=== PATIENT | female | born 1985 | race Caucasian/White ===

== ENCOUNTER → 2019-09-12 09:32 | Outpatient (BNVA) | payer BC, SELFPAY | PROVIDERS: Family Provider Nurse Practitioner Family; Visit Provider Nurse Practitioner Family | DX: S92.902A Unspecified fracture of left foot, initial encounter for closed fracture (principal); X58.XXXA Exposure to other specified factors, initial encounter | CPT/HCPCS: 73630 ==

== ENCOUNTER → 2019-09-16 13:30 | Outpatient (BNVA) | payer BC, SELFPAY | PROVIDERS: Family Provider Nurse Practitioner Family; Visit Provider Podiatrist Foot & Ankle Surgery | DX: S90.32XA Contusion of left foot, initial encounter (principal); X58.XXXA Exposure to other specified factors, initial encounter | CPT/HCPCS: 73630 ==

== ENCOUNTER → 2019-10-07 13:20 | Outpatient (BNVA) | payer BC, SELFPAY | PROVIDERS: Family Provider Nurse Practitioner Family; Visit Provider Podiatrist Foot & Ankle Surgery | DX: S90.32XA Contusion of left foot, initial encounter (principal); S93.325A Dislocation of tarsometatarsal joint of left foot, initial encounter; M19.072 Primary osteoarthritis, left ankle and foot; X58.XXXA Exposure to other specified factors, initial encounter | CPT/HCPCS: 73630 ==

== ENCOUNTER 2019-10-10 10:35 | Outpatient (CLI) | payer BC, SELFPAY ==
--- NOTE | 2019-10-10 10:41 | XR_ITS ---
WS: [id number] XR lumbar spine 6V w f/e [id number] REASON FOR EXAM: low back pain FINDINGS: The disc spaces and vertebral bodies are all normal. In the oblique views no evidence of spondylolysis or spondylolisthesis. The angle weightbearing of L3 is anterior to the base of the sacrum with slight increased lordosis. The facets are normal. The lumbosacral angle was essentially normal. XR/XR lumbar spine 6V w f/e [id number] IMPRESSION: Increased lordosis.
== END 2019-10-10 10:36 | disposition home or self-care (01) ==
LOC: RAD 10:39
PROVIDERS: Family Provider Nurse Practitioner Family; PCP Nurse Practitioner Family; Visit Provider Nurse Practitioner Family
DX: M51.36 Other intervertebral disc degeneration, lumbar region (principal); M40.46 Postural lordosis, lumbar region; M54.5 Low back pain
CPT/HCPCS: 72114

== ENCOUNTER → 2019-12-08 10:32 | Outpatient (BNVA) | payer BC, SELFPAY | PROVIDERS: Family Provider Nurse Practitioner Family; PCP Nurse Practitioner Family; Visit Provider Nurse Practitioner Family | DX: S69.90XA Unspecified injury of unspecified wrist, hand and finger(s), initial encounter (principal) | CPT/HCPCS: 73130 ==

== ENCOUNTER → 2020-06-01 11:42 | Outpatient (BNVA) | payer BC, SELFPAY | PROVIDERS: Family Provider Nurse Practitioner Family; PCP Nurse Practitioner Family; Visit Provider Nurse Practitioner Family | DX: J02.9 Acute pharyngitis, unspecified (principal) | CPT/HCPCS: 87070; 87071; 87880 ==

== ENCOUNTER → 2020-08-03 16:04 | Outpatient (BNVA) | payer BC, SELFPAY | PROVIDERS: Family Provider Nurse Practitioner Family; PCP Nurse Practitioner Family; Visit Provider Nurse Practitioner Family | DX: I10 Essential (primary) hypertension (principal); R45.86 Emotional lability; K52.9 Noninfective gastroenteritis and colitis, unspecified; Z79.899 Other long term (current) drug therapy; F41.9 Anxiety disorder, unspecified | CPT/HCPCS: 80053; 81003; 82607; 82670; 82784; 83001; 83036; 83516; 83550; 84439; 84443; 84481; 85025 ==

== ENCOUNTER → 2020-08-06 11:54 | Outpatient (BNVA) | payer BC, SELFPAY | PROVIDERS: Family Provider Nurse Practitioner Family; PCP Nurse Practitioner Family; Visit Provider Nurse Practitioner Family | DX: K52.9 Noninfective gastroenteritis and colitis, unspecified (principal); I10 Essential (primary) hypertension | CPT/HCPCS: 83630; 87493; 87506; G0328 ==

== ENCOUNTER 2021-01-13 13:53 | Emergency (ER) | payer OTHER, SELFPAY ==
[2021-01-13 14:06] VITALS: BP 130/87; PULSE 72; RESP 16; TEMP 36.6; O2SAT 97; BMI 26.6
--- NOTE | 2021-01-13 14:22 | ECG_ITS ---
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 Measurements Intervals [place] Rate: 77 P: 68 ID: [id number] QRS: 70 QRSD: 87 T: 58 QT: 420 QTc: 477 Interpretive Statements SINUS RHYTHM WITH OCCASIONAL VENTRICULAR PREMATURE COMPLEXES WITH FREQUENT SUPRAVENTRICULAR PREMATURE COMPLEXES POSSIBLE LEFT ATRIAL ENLARGEMENT [-0.1mV P WAVE IN V1/V2] MINIMAL ST DEPRESSION [0.025+ mV ST DEPRESSION] Compared to ECG 11/06/2018 15:01:47 Ventricular premature complex(es) now present ST (T wave) deviation now present Electronically Signed On 01-13-2021 18:30:10 CDT by aKlyn Washington M.D. [email or web address] [facility].[id number]
[2021-01-13 14:40] LABS: Basophils # 0.1 10^3/uL (0.0-0.1); Eosinophils # 0.1 10^3/uL (0.0-0.8); Eosinophils % 1.9 %; Hematocrit 45.6 % (37.0-47.0); Hemoglobin 14.7 g/dL (11.5-15.3); Lymphocytes % 20.8 %; Mean Corpuscular HGB Conc 32.2 g/dL (30.0-36.0); Mean Corpuscular Hemoglobin 28.8 pg (28.0-34.0); Mean Corpuscular Volume 89.2 fL (81-99); Monocytes # 0.3 10^3/uL (0.2-0.9); Monocytes % 7.1 %; Neutrophils # 3.32 10^3/uL (1.8-7.7); Nucleated Red Blood Cells % 0 %; Platelet Count 356 10^3/cmm (130-400); Red Blood Count 5.11 10^6/uL (4.1-5.3); Red Cell Distribution Width 13.3 % (12.1-15.1); White Blood Count 4.8 10^3/uL (4.0-10.0)
[2021-01-13 15:37] LABS: Anion Gap 19.1 (5-19); Blood Urea Nitrogen 5 mg/dL (6-20); Calcium 8.9 mg/dL (8.5-10.5); Carbon Dioxide 26 mmol/L (22-29); Chloride 99 mmol/L (98-107); Creatinine Clr Calc Pharmacy 131.8755; Glomerular Filtration Rate 114.4 mL/min (90-130); Glucose 70 mg/dL (65-115); Osmolality Calculated 286 mOsm/kg (285-295); Potassium 4.1 mmol/L (3.5-5.1); Sodium 140 mmol/L (136-145)
--- NOTE | 2021-01-13 16:26 | XRR_ITS ---
PROCEDURE INFORMATION: Exam: XR Chest Exam date and time: 01/13/2021 4:27 PM Age: 35 years old Clinical indication: Sternal or substernal pain; Additional info: Cp, HTN TECHNIQUE: Imaging protocol: XR of the chest. Views: 1 view. COMPARISON: CR Chest 1 [place] [id number] 11/06/2018 4:13 PM FINDINGS: Lungs: Unremarkable. No consolidation. Pleural spaces: Unremarkable. No pleural effusion. No pneumothorax. Heart/Mediastinum: Unremarkable. No cardiomegaly. Bones/joints: Unremarkable. XR/XR chest 1V portable [id number] IMPRESSION: No acute disease.
[2021-01-13 16:33] VITALS: BP 138/100; PULSE 78; RESP 18; O2SAT 98
--- NOTE | 2021-01-13 16:35 | W.ED.GENADLT ---
HPI - General Adult General: Chief complaint: General Medical Stated complaint: Abnormal EKG/HTN Time Seen by Provider: 01/13/21 16:05 Source: patient Mode of arrival: EMS Limitations: no limitations History of Present Illness: HPI narrative: This is a 35-year-old female patient with a prior history of hypertension, who had been on antihypertensives but stopped as she felt her blood pressure was under control. Today she reports that she she was feeling lightheaded and checked her blood pressure and it was elevated with the systolic in the 150s. She has a prescription for as needed clonidine and so she took 1 tablet but it initially did not bring her blood pressure down, so she went to see her primary care provider. An EKG done at the PCPs office was said to be abnormal so she was sent down to the ED to be evaluated Onset (ago): hour(s) Associated symptoms: Reports chest pain; Deny confusion, cough, diaphoresis, decreased appetite, dyspnea, fevers/chills, headache(s), malaise, nausea, rash, palpitations, seizures, short of breath, syncope, vomiting or weakness Review of Systems General: Reports: 10 or more systems reviewed and unremarkable except in HPI and below Const: Denies: malaise or diaphoresis Card: Reports: chest pain; Denies: palpitations or syncope Resp: Denies: dyspnea GI: Denies: nausea or vomiting Skin/Breast: Denies: rash Neuro: Denies: headache(s) or confusion PFS ED PFSH: Medical History Anxiety Patient has taken Alprazolam 0.5mg daily in the past that was provided by previous provider. Anxiety Atrial arrhythmia Chronic diarrhea Depression Essential hypertension GERD (gastroesophageal reflux disease) Intermittent palpitations Left ankle sprain Medication management Mood swings Pharyngitis Pleuritic chest pain Raynauds disease Rhus dermatitis Scleroderma Sinus arrhythmia Vitamin D deficiency Surgical History Hx of tubal ligation Family History Grandmother CAD (coronary artery disease) Myocardial infarction Grandfather Hypertension Myocardial infarction Father Diabetes Social History Smoking and tobacco status: never smoked Second hand smoke exposure: No Alcohol intake: never Desire information about alcohol rehabilitation?: No Counseling given: No Desire information about substance/drug rehabilitation?: No Counseling given: No Household members: children Current occupational status: employed 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[employer], 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 Female Reproductive History: Date of last menstrual period: 01/13/21 Physical Exam Const: COMMON NORMALS: no acute distress, average body habitus, patient oriented x3, no limitations, healthy appearing, alert and well nourished HENMT: COMMON NORMALS: normocephalic, atraumatic and moist oral mucous membranes HEAD & SCALP: normocephalic and atraumatic Neck/C-Spine: COMMON NORMALS: no meningeal signs and no JVD Chest: COMMONS NORMALS: normal inspection of the chest and normal palpation of entire chest wall Resp: COMMON NORMALS: normal respiratory effort, No retractions, No use of accessory muscles, clear to auscultation bilaterally and percussion normal AUSCULTATION: clear to auscultation bilaterally PERCUSSION: percussion normal Cardio: COMMON NORMALS: no JVD, regular rate, regular rhythm, S1 normal heart sound present, S2 normal heart sound present, No gallops present (Cardio), No clicks present (Cardio), No murmurs present (Cardio), No rub (Cardio) and Peripheral pulses 2+ throughout RATE: regular rate RHYTHM: regular rhythm HEART SOUNDS: S1 normal heart sound present and S2 normal heart sound present PERIPHERAL PULSES: Peripheral pulses 2+ throughout GI: COMMON NORMALS: Normal to inspection, nondistended, normoactive bowel sounds present, Soft to palpation, non-tender, No hepatosplenomegaly present, no masses and no bruits PALPATION: Yes Soft to palpation and Yes No hepatosplenomegaly present Extremity: COMMON NORMALS: normal to inspection, full ROM, capillary refill normal, no calf tenderness and no pedal edema Neuro: COMMON NORMALS: patient oriented x3 SENSORIUM/ORIENTATION: Yes alert MENINGEAL SIGNS: Yes no meningeal signs Skin: COMMON NORMALS: no rashes or lesions noted, no wounds, turgor normal, no jaundice, no petechiae and no mottling GENERAL SKIN EXAM: no rashes or lesions noted and turgor normal Course Reevaluation(s): Reevaluation #1: Discussed her lab and imaging findings with her. Negative for acute findings. Advised that she needs to get back on her antihypertensives. We will send her home with a prescription for amlodipine since that was what she was taking before she stopped it. She is advised to check her blood pressures regularly and to follow-up with her primary care provider. She voiced understanding and is in agreement with the plan. Time: 17:47 Vital Signs: Vital signs: Vital Signs Temperature 97.9 F 01/13/21 14:06 Pulse Rate 73 01/13/21 17:59 Respiratory Rate 15 01/13/21 17:59 Blood Pressure 154/100 01/13/21 17:59 Pulse Oximetry 98 01/13/21 17:59 MDM - General Adult MDM Narrative: Medical decision making narrative: 35-year-old female patient who was brought to the emergency department with elevated blood pressure. Evaluation in the emergency department is consistent with hypertensive urgency. No endorgan damage. She is discharged home with a prescription for amlodipine and is to follow-up with her primary care provider. Medical Records: Attestation: I reviewed the patient's medical records. Lab Data: Attestation: I reviewed the patient's lab results. Labs: Lab Results 01/13/21 01/13/21 01/13/21 Range/Units 14:27 14:27 14:27 WBC 4.8 (4.0-10.0) 10^3/ uL RBC 5.11 (4.1-5.3) 10^6/u L Hgb 14.7 (11.5-15.3) g/dL Hct 45.6 (37.0-47.0) % MCV 89.2 (81-99) fL MCH 28.8 (28.0-34.0) pg MCHC 32.2 (30.0-36.0) g/dL RDW 13.3 (12.1-15.1) % Plt Count 356 (130-400) 10^3/c mm MPV 10.0 (7.4-10.4) fL Neut % (Auto) 69.0 % Lymph % (Auto) 20.8 % [place] % (Auto) 7.1 % Eos % (Auto) 1.9 % Baso % (Auto) 1.0 % Neut # (Auto) 3.32 (1.8-7.7) 10^3/u L Lymph # (Auto) 1.0 (0.8-4.8) 10^3/u L [place] # (Auto) 0.3 (0.2-0.9) 10^3/u L Eos # (Auto) 0.1 (0.0-0.8) 10^3/u L Baso # (Auto) 0.1 (0.0-0.1) 10^3/u L Nucleated RBC % (a uto) 0 % Nucleated RBCs # 0.0 /100WBC Sodium 140 (136-145) mmol/L Potassium 4.1 (3.5-5.1) mmol/L Chloride 99 (98-107) mmol/L Carbon Dioxide 26 (22-29) mmol/L Anion Gap 19.1 H (5-19) BUN 5 L (6-20) mg/dL Creatinine 0.6 (0.5-0.9) mg/dL GFR Calculation 114.4 (90-130) mL/min Glucose 70 (65-115) mg/dL Calculated Osmolal ity 286 (285-295) mOsm/k g Calcium 8.9 (8.5-10.5) mg/dL Troponin T Baselin e 6 (0-10) ng/L Troponin T 120 Min josé (0-10) ng/L Delta Troponin T (0-10) ABS# TSH (0.27-4.20) uIU/ mL 01/13/21 01/13/21 Range/Units 14:27 16:53 WBC (4.0-10.0) 10^3/ uL RBC (4.1-5.3) 10^6/u L Hgb (11.5-15.3) g/dL Hct (37.0-47.0) % MCV (81-99) fL MCH (28.0-34.0) pg MCHC (30.0-36.0) g/dL RDW (12.1-15.1) % Plt Count (130-400) 10^3/c mm MPV (7.4-10.4) fL Neut % (Auto) % Lymph % (Auto) % [place] % (Auto) % Eos % (Auto) % Baso % (Auto) % Neut # (Auto) (1.8-7.7) 10^3/u L Lymph # (Auto) (0.8-4.8) 10^3/u L [place] # (Auto) (0.2-0.9) 10^3/u L Eos # (Auto) (0.0-0.8) 10^3/u L Baso # (Auto) (0.0-0.1) 10^3/u L Nucleated RBC % (a uto) % Nucleated RBCs # /100WBC Sodium (136-145) mmol/L Potassium (3.5-5.1) mmol/L Chloride (98-107) mmol/L Carbon Dioxide (22-29) mmol/L Anion Gap (5-19) BUN (6-20) mg/dL Creatinine (0.5-0.9) mg/dL GFR Calculation (90-130) mL/min Glucose (65-115) mg/dL Calculated Osmolal ity (285-295) mOsm/k g Calcium (8.5-10.5) mg/dL Troponin T Baselin e (0-10) ng/L Troponin T 120 Min josé 6.00 (0-10) ng/L Delta Troponin T 0 (0-10) ABS# TSH 0.82 (0.27-4.20) uIU/ mL Imaging Data^: CXR: Attestation: I personally reviewed and interpreted this imaging study as follows: Radiologist's impression: [address] [address]QUsw ReportSigned Patient: Gadiel Caballero #: [id number]: 1985Acct#:[id number]/Sex: 35 / FADM Date: 01/13/21Loc: ERRoom/Bed:Attending Dr: Ordering Provider/Ordering MD: Taty Alejandra MD, [facility] Date of Service: 01/13/21 Procedure(s): XR chest 1V portable [id number] Accession Number(s): [id number] Report Number: [id number] PROCEDURE INFORMATION: Exam: XR Chest Exam date and time: 01/13/2021 4:27 PM Age: 35 years old Clinical indication: Sternal or substernal pain; Additional info: Cp, HTN TECHNIQUE: Imaging protocol: XR of the chest. Views: 1 view. COMPARISON: CR Chest 1 [place] [id number] 11/06/2018 4:13 PM FINDINGS: Lungs: Unremarkable. No consolidation. Pleural spaces: Unremarkable. No pleural effusion. No pneumothorax. Heart/Mediastinum: Unremarkable. No cardiomegaly. Bones/joints: Unremarkable. XR/XR chest 1V portable [id number] IMPRESSION: No acute disease. Dictated By:Che Huerta By:Che Huerta Date/Time:01/13/211716DD/ 15 EKG Data^: EKG 1: Attestation: I personally reviewed and interpreted this EKG as follows: EKG interpretation date: 01/13/21 EKG interpretation time: 16:13 Prior EKG tracings: not available for review Interpretation: Sinus rhythm with occasional PVCs. Heart rate [address] changes. Computer generated interpretation: Chest X-Ray 01/13/21 16:26 IMPRESSION: No acute disease. Discharge Plan Discharge Patient Disposition: Home Clinical Impression: Hypertensive urgency Condition: Stable Prescriptions: New amlodipine 10 mg tablet 10 mg PO DAILY Qty: 30 RF: 0 Continued lidocaine HCl [Xylocaine] 10 mg/mL (1 %) solution 2 ml IM ONCE Qty: 1 RF: 0 clonidine HCl 0.1 mg tablet 0.1 mg PO BID PRN (Reason: hypertensive emergency) RF: 0 alprazolam 0.5 mg tablet 0.5 mg PO DAILY PRN (Reason: anxiety) 3 Days Qty: 30 RF: 2 omeprazole 20 mg capsule,delayed release(DR/EC) See Rx Instructions .ROUTE .COMPLEX Qty: 30 RF: 5 venlafaxine 37.5 mg capsule,extended release 24hr 37.5 mg PO DAILY 30 Days Qty: 30 RF: 1 Discharge Orders: Discharge ED (Routine); Ordered 01/13/21 Ordered By: Taty Alejandra Referrals: LANIE Charles, [employer] [Primary Care Provider] - 1-3 days Discharge Diet: Usual diet Discharge Activity: Increase activity as tolerated Patient Instructions: Chronic Hypertension (ED), Hypertensive Crisis (ED) Activity Restrictions/Additional Instructions: Return for any new or worsening symptoms. Follow-up with your primary care provider within 3 days. Check your blood pressure once a day for signs of elevated blood pressure. Take the antihypertensive that I prescribed once a day and follow-up with your primary care provider for monitoring of your blood pressure. Coding Level of Care Code ED Accounts Adjustable Clerk for Adali Fwd Exam Comprehensive
[2021-01-13 17:01] LABS: Troponin(5th) Baseline 6 ng/L (0-10)
[2021-01-13 17:09] LABS: Thyroid Stimulating Hormone 0.82 uIU/mL (0.27-4.20)
[2021-01-13 17:22] LABS: Troponin 5 2HR Delta 0 ABS# (0-10)
[2021-01-13 17:33] VITALS: BP 154/100; PULSE 73; RESP 15; O2SAT 98
[2021-01-13 17:59] VITALS: BP 154/100; PULSE 73; RESP 15; O2SAT 98
== END 2021-01-13 17:59 | disposition home or self-care (01) ==
PROVIDERS: Family Medicine; Emergency Provider Family Medicine; PCP Nurse Practitioner Family
DX: I16.0 Hypertensive urgency (principal); I10 Essential (primary) hypertension
CPT/HCPCS: 36415; 71045; 80048; 84443; 84484; 85025; 93005; 99283

== ENCOUNTER → 2021-04-29 11:50 | Outpatient (BNVA) | payer OTHER, SELFPAY | PROVIDERS: PCP Nurse Practitioner Family; Visit Provider Nurse Practitioner Family | DX: Z20.822 Contact with and (suspected) exposure to COVID-19 (principal); J22 Unspecified acute lower respiratory infection | CPT/HCPCS: 87635 ==

== ENCOUNTER → 2021-08-25 13:23 | Outpatient (BNVA) | payer OTHER, SELFPAY | PROVIDERS: PCP Nurse Practitioner Family; Visit Provider Nurse Practitioner Family | DX: R07.9 Chest pain, unspecified (principal); R07.1 Chest pain on breathing | CPT/HCPCS: 71046 ==

== ENCOUNTER → 2022-07-18 09:38 | Outpatient (BNVA) | payer OTHER, SELFPAY | PROVIDERS: PCP Nurse Practitioner; Visit Provider Nurse Practitioner | DX: R10.9 Unspecified abdominal pain (principal); N32.81 Overactive bladder; R31.9 Hematuria, unspecified; E66.9 Obesity, unspecified | CPT/HCPCS: 74018; 87086 ==

== ENCOUNTER → 2022-09-06 14:07 | Outpatient (BNVA) | payer OTHER, SELFPAY | PROVIDERS: PCP Nurse Practitioner; Visit Provider Nurse Practitioner Family | DX: S93.401A Sprain of unspecified ligament of right ankle, initial encounter (principal); X58.XXXA Exposure to other specified factors, initial encounter | CPT/HCPCS: 73610 ==

== ENCOUNTER → 2023-08-10 08:45 | Outpatient (BNVA) | payer MEDICAID, SELFPAY | PROVIDERS: PCP Nurse Practitioner; Visit Provider Nurse Practitioner Family | DX: N32.81 Overactive bladder (principal); I10 Essential (primary) hypertension; E55.9 Vitamin D deficiency, unspecified; Z13.6 Encounter for screening for cardiovascular disorders; Z79.899 Other long term (current) drug therapy; F41.9 Anxiety disorder, unspecified; F32.9 Major depressive disorder, single episode, unspecified | CPT/HCPCS: 80053; 80061; 81003; 82306; 83036; 84443; 85025; 87086 ==

== ENCOUNTER → 2023-09-13 14:01 | Outpatient (BNVA) | payer OTHER, MEDICAID, SELFPAY | PROVIDERS: PCP Nurse Practitioner; Visit Provider Nurse Practitioner Family | DX: S63.91XA Sprain of unspecified part of right wrist and hand, initial encounter; X58.XXXA Exposure to other specified factors, initial encounter | CPT/HCPCS: 73130 ==

== ENCOUNTER → 2023-11-13 14:05 | Outpatient (BNVA) | payer OTHER, SELFPAY | PROVIDERS: PCP Nurse Practitioner; Visit Provider Nurse Practitioner Family | DX: R10.9 Unspecified abdominal pain (principal); K52.9 Noninfective gastroenteritis and colitis, unspecified | CPT/HCPCS: 73130; 80053; 80061; 81003; 82784; 83516; 83630; 85025; 87045; 87177; 87209; 87328; 87329; 87427; 87449 ==

== ENCOUNTER → 2023-12-06 09:25 | Outpatient (BNVA) | payer OTHER, SELFPAY | PROVIDERS: PCP Nurse Practitioner Family; Visit Provider Nurse Practitioner Family | DX: D35.00 Benign neoplasm of unspecified adrenal gland (principal); D64.9 Anemia, unspecified; Z79.899 Other long term (current) drug therapy | CPT/HCPCS: 80053; 81003; 82607; 82728; 84439; 84443 ==

== ENCOUNTER → 2024-09-03 10:52 | Outpatient (BNVA) | payer OTHER, SELFPAY | PROVIDERS: PCP Nurse Practitioner Family; Visit Provider Nurse Practitioner Family | DX: F41.9 Anxiety disorder, unspecified (principal); I10 Essential (primary) hypertension; R00.0 Tachycardia, unspecified; E55.9 Vitamin D deficiency, unspecified; D64.9 Anemia, unspecified; R32 Unspecified urinary incontinence; R61 Generalized hyperhidrosis; M34.9 Systemic sclerosis, unspecified; Z79.899 Other long term (current) drug therapy | CPT/HCPCS: 80053; 80061; 81003; 82607; 82746; 83036; 83550; 84439; 84443; 84481; 85025; 85651; 86038; 86140 ==

== ENCOUNTER 2025-03-03 13:50 | Emergency (ER) | payer MEDICAID, SELFPAY ==
[2025-03-03 13:55] VITALS: BP 142/89; PULSE 85; RESP 16; TEMP 36.9; O2SAT 97
--- NOTE | 2025-03-03 14:08 | PC.NURSE ---
took patients IV out in triage per her request to leave without being seen. iv intact upon removal.
--- OUTSIDE RECORDS SUMMARY | 2025-03-03 14:21 | XMS_ITS | Encounter Summary ---
Author Organization [facility] Address [address] [place] [address] Care Team Providers Care Health Information Technologist Name Role Phone Terri Hartman DO Primary Care Provider Encounter Details Date Type Department Care Team (Latest Contact Info) Description 03/27/2003 Outpatient [facility] Medicine- [address] [phone] Malcolm Davies MD [address] [facility] [address] [place] [phone] VIRAL WARTS NOS (Primary Dx) Social History Tobacco Use Types Packs/Day Years Used Date Smoking Tobacco: Never Assessed Comments Unknown Sex and Gender Information Value Date Recorded Sex Assigned at Not on file 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
--- OUTSIDE RECORDS SUMMARY | 2025-03-03 14:21 | XMS_ITS | Encounter Summary ---
Author Organization [facility] Address [address] [place] [facility] [place] [address] Care Team Providers Care Rod Welder Name Role Phone Terri Hartman DO Primary Care Provider [phone] Encounter Details Date Type Department Care Team (Latest Contact Info) Description 01/02/2003 Outpatient [facility] Family Medicine- [address] [place] [address] Laura Amaro MD NO ADDRESS ON FILE METRORRHAGIA (Primary Dx); CONTRACEPTIVE MANGMT NEC Social History Tobacco Use Types Packs/Day Years Used Date Smoking Tobacco: Never Assessed Comments Unknown Sex and Gender Information Value Date Recorded Sex Assigned at Not on file 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
--- OUTSIDE RECORDS SUMMARY | 2025-03-03 14:21 | XMS_ITS | Encounter Summary ---
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
--- OUTSIDE RECORDS SUMMARY | 2025-03-03 14:21 | XMS_ITS | Encounter Summary ---
Author Organization [facility] Address [address] [place] [address] Care Team Providers Care Parcel Wrapper Name Role Phone Terri Hartman DO Primary Care Provider Encounter Details Date Type Department Care Team (Latest Contact Info) Description 10/28/2003 Outpatient [facility] Medicine- [address] [phone] Malcolm Davies MD [address] [facility] [address] [place] [phone] URIN TRACT INFECTION NOS (Primary Dx) Social History Tobacco Use Types Packs/Day Years Used Date Smoking Tobacco: Never Assessed Comments Unknown Sex and Gender Information Value Date Recorded Sex Assigned at Not on file Legal Sex Female 5:48 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
--- OUTSIDE RECORDS SUMMARY | 2025-03-03 14:21 | XMS_ITS | Encounter Summary ---
Author Organization [facility] Address [address] [place] [facility] [place] [address] Care Team Providers Care Packing Machine Operator Name Role Phone Terri Hartman DO Primary Care Provider Encounter Details Date Type Department Care Team (Latest Contact Info) Description 04/18/2002 Outpatient [facility] Family Medicine- [address] [place] [address] Laura Amaro MD NO ADDRESS ON FILE ACUTE BRONCHITIS (Primary Dx); Hypertrophy tonsils Social History Tobacco Use Types Packs/Day Years Used Date Smoking Tobacco: Never Assessed Comments Unknown Sex and Gender Information Value Date Recorded Sex Assigned at Not on file 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
--- OUTSIDE RECORDS SUMMARY | 2025-03-03 14:21 | XMS_ITS | Encounter Summary ---
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) Social History Tobacco Use Types Packs/Day Years Used Date Smoking Tobacco: Never Assessed Comments Unknown Sex and Gender Information Value Date Recorded Sex Assigned at Not on file 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
--- OUTSIDE RECORDS SUMMARY | 2025-03-03 14:21 | XMS_ITS | Encounter Summary ---
Author Organization [facility] Address [address] [place] [address] Care Team Providers Care Advanced Research Programs Director Name Role Phone Terri Hartman DO Primary Care Provider Encounter Details Date Type Department Care Team (Latest Contact Info) Description 11/09/2003 Outpatient [facility] Family Medicine [place] [address] [facility] [address] [place] [phone] Malcolm Davies MD [address] [facility] [address] [place] [phone] ABDOMINAL PAIN UNSPEC SITE (Primary Dx); HEADACHE; OTHER MALAISE AND FATIGUE Social History Tobacco Use Types Packs/Day Years Used Date Smoking Tobacco: Never Assessed Comments Unknown Sex and Gender Information Value Date Recorded Sex Assigned at Not on file 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
--- OUTSIDE RECORDS SUMMARY | 2025-03-03 14:21 | XMS_ITS | Data Portability ---
Author Organization [facility], Formerly [facility] Address [address] [place] [address] Assessment Encounter Date Assessment Date Assessment LastModified by Organization Details LastModified Time 03/18/2019 03/18/2019 Pt has tenderness, swelling, and limited ROM of left ankle. XR shows possible fracture of fibula, will send to radiologist and wait for report. Advised to avoid putting pressure on the ankle and to elevate the leg as much as possible. Advised to take ibuprofen 800 mg TID for any pain and to help reduce inflammation. Advised to continue using hot soaks on the ankle. XR of left foot shows no apparent fracture, will send to radiologist and wait for report. Pt has ecchymosis over the distal fibula, dorsum, and medial instep, and heel area. Advised to return as needed and Pt voiced understanding. Not available 03/18/2019 16:11:11 04/22/2019 04/22/2019 Xray obtained of left foot No obvious brake or fracture Will send to radiologist. will refer patient to Specialist. she would like to see Dr. Bor in [place]. Will put in order for walking boot.- would like to see if [facility] would fulfill the order Questions were asked, discussed, and answered. Follow up if needed [email or web address] Not available 04/22/2019 12:23:07 Plan of Treatment Reminders Order Date Submit Date Provider Last Modified By Organization Details Last Modified Time Details Appointments None recorded. Lab None recorded. 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 Surgeries None recorded. Imaging XR, ankle, 3 or more view [address], [address], [address], [place], [address], 9 08:49:17 XR, ankle, 3 or more view 2018 019 [facility], [address], [address], [place], [address], 9 11:08:42 XR, foot, 2 view 2018 019 [facility], [address], [address], [place], [address], 9 11:06:14 Medication Orders triamcinolo ne acetonide 0.1 % topical cream 2024 025 [place] [facility], [address] [place], [address], 5 17:10:41 Depo-Medrol 80 mg/mL suspension for injection 2024 025 [email or web address] Not available 5 12:19:44 dexamethaso ne sodium phosphate (PF) 4 mg/mL injection solution 2024 025 [email or web address] Not available 5 14:39:03 cephalexin 500 mg capsule 2024 025 [place] [facility], [address] [place], [address], 5 17:34:36 ibuprofen 800 mg tablet 2018 019 [email or web address] [employer] [facility], [address] [place], [address], 9 17:51:43 Patient TargetsNo targets recorded. Patient InstructionsNo instructions recorded. 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 Not Available 2018 13:19:59 03/19/20 19 03/18/2019 XR, foot, 2 view No observ ation record ed. Not Available 2018 13:19:59 04/23/20 19 04/22/2019 XR, ankle , 3 or more view No observ ation record ed. [address], [place] [address], [place], [address], 04/28/2019 14:15:20 Result Notes None recorded. Problems Name Problem SNOMED Code Status Onset Date Resolution Date Notes Provider Name and Address Organization Details Recorded Time Cardiac arrhythmia 780192711 Active 2018 JOHN Johnson, [facility] 9 15:10:44 Hypertensi ve disorder 09771558 Active 2018 JOHN Johnson, [facility] 9 15:10:59 Depressive disorder 17230615 Active 2018 JOHN Johnson, [facility] 9 15:11:07 Systemic sclerosis 50549878 Active 2018 systemic scleroderm a JOHN Johnson, [facility] 9 15:12:00 Problem Notes None recorded. Procedures Surgical History Date Name Laterality Status Provider Name and Address Organization Details Recorded Time 8 Tubal Ligation completed Lou Bradford LPN [facility] 03/18/2019 15:12:40 Imaging Results None recorded. Procedure Notes None recorded. Medical Equipment None Reported. Allergies Allergen ID Allergen Name Allergen Category Reaction Reaction Severity Criticality Documentation Date Start Date Code Code System Note Provider Name and Address Organization Details Recorded Time [address] Ricardoro medicdevono n Not available Not available Not available 03/18/2019 3 RxNorm Lou Bradford LPN [facility] 9 15:10:33 Medications Name Sig Start Date Stop Date Status Note LastModified by Organization Details LastModified Time clonidine HCl 0.1 mg tablet Take 1 tablet every day by oral route as needed. 10/14 completed Not Available Not Available Not Available citalopram 40 mg tablet TAKE 1 TABLET BY MOUTH DAILY active Not Available Not Available No t Available ibuprofen 800 mg tablet TAKE 1 TABLET BY MOUTH EVERY 8 HOURS FOR 30 DAYS active Not Available Not Available No t Available omeprazole 40 mg capsule,del ayed release TAKE 1 CAPSULE BY MOUTH EVERY DAY active Not Available Not Available No t Available triamcinolo ne acetonide 0.1 % topical cream APPLY A THIN LAYER TO THE AFFECTED AREA(S) BY TOPICAL ROUTE 2 TIMES PER DAY active Not Available Not Available No t Available Depo-Medrol 80 mg/mL suspension for injection Take 80 mg by injection route. 2024 active Not Available Not Available Not Avai lable alprazolam 0.5 mg tablet TAKE 1 TABLET BY MOUTH daily Needed FOR anxiety FOR 30 DAYS active Not Available Not Available No t Available amlodipine 10 mg tablet TAKE 1 TABLET BY MOUTH EVERY DAY active Not Available Not Available No t Available cephalexin 500 mg capsule TAKE 1 CAPSULE BY MOUTH EVERY 6 HOURS FOR 7 DAYS active Not Available Not Available No t Available neomycin-po lymyxin-dex ameth 3.5 mg/mL-10,00 0 unit/mL-0.1 % eye drops administe r 2 DROPS INTO THE AFFECTED EYE(S) EVERY 6 HOURS 10/14 completed Not Available Not Available Not Available gabapentin 300 mg capsule TAKE 1 CAPSULE BY MOUTH ONCE EVERY NIGHT AT BEDTIME 10/14 completed Not Available Not Available Not Available sertraline 25 mg tablet Take 1 tablet every day by oral route. 10/14 completed Not Available Not Available Not Available telmisartan 20 mg tablet TAKE 1 TABLET BY MOUTH EVERY DAY active Not Available Not Available No t Available ergocalcife rol (vitamin D2) 1,250 mcg (50,000 unit) capsule TAKE 1 CAPSULE BY MOUTH ONCE A WEEK active Not Available Not Available No t Available methylpredn isolone 4 mg tablets in a dose pack TAKE 6 TABLETS BY MOUTH ON DAY 1, THEN DECREASE BY 1 TABLET DAILY FOR 5 MORE DAYS 10/14 completed Not Available Not Available Not Available hydroxyzine HCl 10 mg tablet TAKE 1 TABLET BY MOUTH EVERY 8 HOURS active Not Available Not Available No t Available sertraline 50 mg tablet Take 1 tablet every day by oral route. 10/14 completed Not Available Not Available Not Available progesteron e micronized 100 mg capsule TAKE 1 CAPSULE BY MOUTH ONCE EVERY NIGHT AT BEDTIME 10/14 completed Not Available Not Available Not Available amoxicillin 500 mg-potassiu m clavulanate 125 mg tablet TAKE 1 TABLET BY MOUTH TWICE DAILY FOR 7 DAYS 10/14 completed Not Available Not Available Not Available metoprolol tartrate 25 mg tablet TAKE 1/2 TABLET BY MOUTH TWICE A DAY FOR 30 DAYS 10/14 completed Not Available Not Available Not Available cholecalcif mele (vitamin D3) 1,250 mcg (50,000 unit) capsule TAKE 1 CAPSULE BY MOUTH ONCE A WEEK 10/14 completed Not Available Not Available Not Available dexamethaso ne sodium phosphate (PF) 4 mg/mL injection solution Take 4 mg by injection route. 2024 active Not Available Not Available Not Avai lable Vitals Date Recorded Body height Body mass index (BMI) Body weight Body temperature Heart rate Oxygen saturation Oxygen saturation in Arterial blood by Pulse oximetry Respiratory rate Systolic And Diastolic Provider Name and Address Organization Details Last Updated DateTime 5 165.1 cm 35.8 kg/m2 27064.4 6 g 98.7 [degF] 86 /min 98 % 98 % 18 /min 114/72 mm[Hg] Ava CONN - [facility] 5 12:21:50 Date Recorded Body weight Body mass index (BMI) Body height Body temperature Heart rate Oxygen saturation Oxygen saturation in Arterial blood by Pulse oximetry Respiratory rate Systolic And Diastolic Provider Name and Address Organization Details Last Updated DateTime 9 23310.2 8 g 31 kg/m2 165.1 cm 97.9 [degF] 111 /min 99 % 99 % 18 /min 118/74 mm[Hg] Lou Bradford LPN [facility] 9 15:17:17 Date Recorded Body height Body mass index (BMI) Body weight Body temperature Heart rate Oxygen saturation Oxygen saturation in Arterial blood by Pulse oximetry Respiratory rate Systolic And Diastolic Provider Name and Address Organization Details Last Updated DateTime 9 165.1 cm 30.7 kg/m2 74927.8 g 97.5 [degF] 93 /min 99 % 99 % 19 /min 120/72 mm[Hg] Estephania Gutiérrez [facility] 9 11:38:43 Social History Question Answer Notes LastModified by Organizat ion Details LastModified Time Tobacco Smoking Status Never Smoker Lou Bradford LPN [facility] 03/18/2019 15:20:35 Do You Have An Advance Directive? No Information not available 03/18/2019 What Is Your Level Of Caffeine Consumption? Occasional Information not available 03/18/2019 How Much Tobacco Do You Chew? None Information not available 03/18/2019 Commercial Sex Work No Information not available 03/18/2019 What Type Of Diet Are You Following? REGULAR Information not available 03/18/2019 Which Illicit Or Recreational Drugs Have You Used? None Information not available 03/18/2019 Education 12 Information no t available 03/18/2019 Are There Any Guns Present In Your Home? Yes Information not available 03/18/2019 Hard Of Hearing Or Deaf In One Or Both Ears? No Information not available 03/18/2019 High Number Of Sexual Partners No Information not available 03/18/2019 History Of Inconsistent/no Condom Use No Information not available 03/18/2019 Legally Blind In One Or Both Eyes? No Information not available 03/18/2019 In The Past 6 Months Have You Fallen No Information not available 03/18/2019 Have You Ever Been Tested For Hepatitis C No Information not available 03/18/2019 Have You Had A Blood Transfusion Before 1991? No Information not available 03/18/2019 Have You Had Penitentiary Dialysis? No Information not available 03/18/2019 Have You Ever Used Injectable Drugs, Even Once? No Information not available 03/18/2019 Do You Have Tattoos Or Body Piercings? Yes Information not available 03/18/2019 Have You Had Close Contact With An Individual With Hepatitis C? No Information not available 03/18/2019 Have You Ever Had Sex For Drugs Or Money? No Information not available 03/18/2019 Have You Ever Had Unprotected Sex? No Information not available 03/18/2019 Have You Been Incarcerated For Longer Than 6 Months? No Information not available 03/18/2019 Have You Tested Positive For HIV? No Information not available 03/18/2019 Do You Have A History Of Fist Fighting Or Combat Experience? No Information not available 03/18/2019 Other? None Information no t available 03/18/2019 Medication List Reconciled Yes Information not available 03/18/2019 Most Recent Dental Visit 08/20/2018 Information not available 03/18/2019 Sexual Orientation Straight Or Heterosexual Information not available 03/18/2019 Gender Identity Female Informati on not available 03/18/2019 Do You Feel Safe Yes Informat ion not available 03/18/2019 Marital Status Informatio n not available 03/18/2019 What Was The Date Of Your Most Recent Tobacco Screening? 10/14/2024 [email or web address] Information not available 10/14/2024 Mother With HIV? No Informat ion not available 03/18/2019 Seat Belts Used Routinely Yes Information not available 03/18/2019 Are You Sexually Active? Yes Information not available 03/18/2019 Sexual Partner Has HIV? No Information not available 03/18/2019 Sexual Partner Uses IV Drugs? No Information not available 03/18/2019 Smoke Alarm In Home Yes Information not available 03/18/2019 How Much Tobacco Do You Smoke? No Information not available 03/18/2019 General Stress Level Low Information not available 03/18/2019 Do You Use Sunscreen Routinely? No Information not available 03/18/2019 Have You Used IV Drugs? No Information not available 03/18/2019 Sex: Female Functional Status Question Answer Note LastModified by Organizat ion Details LastModified Time What is your level of alcohol consumption? Occasional Information not available 03/18/2019 Do you or have you ever used smokeless tobacco? Never used smokeless tobacco Information not available 03/18/2019 Are you able to walk? 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 Never used electronic cigarettes Information not available 03/18/2019 What is your exercise level? Occasional Information not available 03/18/2019 Mental Status None recorded. Family History Relationship Description Onset Age of this Age Resolved Age Notes LastModified by Organization Details LastModified Time Maternal Grandmother Malignant neoplasm of brain Not available 2018 15:13:02 Maternal Grandmother Osteoporosis Not available 0 03/18/2019 15:14:00 Paternal Grandmother Diabetes mellitus Not available 2018 15:13:23 Father Hypertensive disorder Not available 2018 15:13:34 Father Hypercholest erolemia Not available 2018 15:13:45 Medical History Condition Response Depression Y GERD/Reflux Y Hypertension Y Gynecological History Statement/Question Response Flow Moderate Date of LMP 02/20/2019 Frequency of Cycle (Q days) 6 Sexually Active? Y STIs/STDs N HPV Vaccine N Date of Last Pap Smear Sexual Problems? N Age at Menarche 14 Current Control Method Tubal Ligat ion Age at First Child 21 Hormone Replacement Therapy N Obstetrics History GPAL:G 2 P 2 0 0 0 Type Value Full Term 2 Total 2 Immunizations Vaccine Type Date Status Note Provider Nam e and Address Organization Details Recorded Time Tdap 08/20/2018 completed Lou Bradford LPN [place], [place] - [facility] 03/18/2019 15:20:18 Past Encounters Encounter ID Performer Location Encounter Start Date Encounter Closed Date Diagnosis/Indication Diagnosis SNOMED-CT Code Diagnosis ICD10 Code Diagnosis Note [id number] Naun Casiano DO [facility] [place] [address] [place] [address] 03/18/2019 14:53:51 03/18/2019 16:15:46 Pain of left ankle joint 8980744734 4047685 M25.572 Closed fra cture of distal fibula 949508625 S82.831A Ecchymosis 899705555 R58 [id number] Naun Casiano, DO [facility] [address] [place] [address] 04/22/2019 11:22:43 04/22/2019 12:28:57 Pain of left ankle joint 9198734521 7198475 M25.572 Sprain of left ankle 254 5469650 7085388 S93.402D [id number] Vik Campbell, DO [facility] [address] [place] [address] 10/14/2024 12:04:57 10/15/2024 17:49:27 Generalized rash 601374885 R21 Patient presents for a rash all over the abdomen for about 1 month. Patient does have a dermatolog ist appointmen t next month. She has not changed lotions/so aps/shampo os, started new medication s or eaten new foods to cause a reaction that she is aware of. She has tried steroids and it did provide temporary relief. Patient will start antibiotic s and a topical cream as directed. Provider discussed risks, benefits, and possible side effects of the medication with patient. Patient verbalized understand ing and will follow up as needed. Body mass index 30+ - obesity 636427116 Z68.35 BMI 35.8Counse led on importance of healthy diet and 20-30 minutes of exercise 3-5 times per week. Health Concerns Section Related Observation LastModified by Organization Detai ls LastModified Time None Recorded Concern Status LastModified by Organization Details LastModified Time None Recorded Advance Directives Directive N: Payers Insurance Date Sequence Insurance Name Policy Number Policy Oropeza Covered Member ID Oropeza Member ID Guarantor Name 10/14/2024 1 [facility] (MEDICAID HMO) [facility] Pawel Caballero [id number] Pawel Caballero 11/06/2024 2 [place] Pawel Caballero [id number] Pawel Gavinris 11/06/2024 3 [place] [employer] (EPO) [place] Caballero [id number] Smokey Juliano Caballero 11/06/2024 [place] GLORIA Caballero [id number] Smokey Juliano Caballero 10/23/2024 2 [place] [employer] (EPO) [place] Caballero [id number] Smokey Juliano Caballero 10/23/2024 1 [facility] [place] GLORIA Henao Caballero [id number] Pawel Caballero Notes Date Note Type Note Provider Name and Address Organization Details Recorded Time 03/18/2019 text/html Pt complains of pain in left ankle due to rolling it approximately 10 days ago. [facility]/18/2019 17:42:27 04/22/2019 text/html Patient comes in complaining of her left ankle pain. She rolled it about a month ago.she was seen for this at that time and an xray of her ankle was obtained, but ankle and foot XR were negative.She states that she doesn't feel like her ankle is getting much better.It is still really swollen.She wore an air splint for a while and that helped, but when she quit wearing it, it started swelling and hurting again. ALMA ROSA CABALLERO NP [address], [address], [facility] 04/22/2019 13:52:57 10/14/2024 text/html Patient presents for an itchy rash on her torso. HUNTER LAWTON NP [address], [address], [facility] 10/14/2024 16:35:16 OBGyn Episode No OBEpisode recorded.
--- OUTSIDE RECORDS SUMMARY | 2025-03-03 14:21 | XMS_ITS | Clinical Summary ---
Author Organization [facility] Address [address] [facility] [address] [place] [address] Care Team Providers Care Associate Dentist Name Role Phone DevanIvoneTerri L DO Primary Care Provider [phone] Allergies No known active allergies Medications fluticasone (FLONASE) 50 mcg/spray [place], SuspensionIndicat ions:Eustachian tube disorder, bilateral Administer 2 Sprays in each nostril daily. 16 Gram 3 7 Active linaclotide (LINZESS) 145 mcg capsuleIndication s:Chronic idiopathic constipation Take 1 Capsule (145 mcg) by mouth daily before breakfast. 90 Capsule 1 8 Active raNITIdine (ZANTAC) 150 mg tabletIndications :Gastroesophageal reflux disease, esophagitis presence not specified Take 1 Tablet (150 mg) by mouth 2 times daily. 60 Tablet 11 8 Active omeprazole (PriLOSEC) 40 mg Capsule, Delayed Release(E.C.)Rebecca cations:Gastroeso phageal reflux disease, esophagitis presence not specified Take 1 Capsule (40 mg) by mouth daily. 90 Capsule 3 8 Active ALPRAZolam (XANAX) 0.5 mg tabletIndications :Anxiety TAKE ONE TABLET BY MOUTH ONCE DAILY AT BEDTIME NEEDED FOR ANXIETY. 30 Tablet 5 8 Active sertraline (ZOLOFT) 50 mg tabletIndications :Moderate episode of recurrent major depressive disorder (CMS/HCC) Take 1 Tablet (50 mg) by mouth daily. 30 Tablet 2 9 Active cloNIDine HCl (CATAPRES) 0.1 mg tabletIndications :Benign essential HTN Take 1 Tablet (0.1 mg) by mouth 3 times daily Take 1 tab if systolic blood pressure is above 160 or if diastolic is above 100.. 30 Tablet 2 9 Active amLODIPine (NORVASC) 10 mg tabletIndications :Raynaud's disease without gangrene,Essentia l hypertension Take 1 Tablet (10 mg) by mouth daily. 30 Tablet 4 9 Active Active Problems Problem Noted Date Diagnosed Date Scleroderma 07/30/2018 Anxiety 12/27/2016 Moderate episode of recurrent major depressive d isorder 12/27/2016 Gastroesophageal reflux disease 12/27/2016 Raynaud's disease without gangrene 12/27/2016 Constipation 10/20/2010 Resolved Problems Problem Noted Date Diagnosed Date Resolved Date Benign essential HTN 12/27/2016 017 Immunizations Immunization Administration Dates Next Due Hepatitis B Vaccine 01/04/1998,09/04/1997,1996 IPV/OPV 03/06/1994 Family History Medical History Relation Name Comments Hypertension Father Diabetes Maternal Grandfather Diabetes Paternal Grandfather Diabetes Paternal Grandmother Relation Name Status Comments Father Maternal Grandfather Paternal Grandfather Paternal Grandmother Social History Tobacco Use Types Packs/Day Years Used Date Smoking Tobacco: Never Smokeless Tobacco: Never Alcohol Use Standard Drinks/Week Comments No 0 (1 standard drink = 0.6 oz pur e alcohol) Comments No Sex and Gender Information Value Date Recorded Sex Assigned at Not on file 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 Gender Identity Not on file Sexual Orientation Not on file Occupation Industry Job Start Date Job End Date Not on file Not on file Not on file Not on file Last Filed Vital Signs Vital Sign Reading Time Taken Comments Blood Pressure 142/101 07/30/2018 11:34 AM MANAGER [employer]AIN [employer]ING Pulse 99 07/30/2018 11:34 AM MANAGER [employer] Temperature 37.1 C (98.8 F) 07/30/2018 11:34 AM MANAGER [employer]AIN [employer]ANNING Respiratory Rate 20 01/24/2017 3:41 PM CDT Oxygen Saturation 97% 07/30/2018 11: 34 AM MANAGER [employer]ING Inhaled Oxygen Concentration - - Weight 85.3 kg (187 lb 15.4 oz) 018 11:34 AM MANAGER [employer]ING Height 167.6 cm (5' 6 ) 07/30/2018 11:3 4 AM MANAGER SUPPLY [employer]AIN [employer]ANNING Body Mass Index 30.34 07/30/2018 11:34 AM MANAGER [employer]PPLY CHAIN PLANNING Plan of Treatment Health Maintenance Due Date Last Done Comments DTAP/TDAP/TD VACCINES (1 - Tdap) 2005 HPV/Cotest (21-29) 2007 CERVICAL CANCER SCREENING 02/04/2016 HPV/Cotest (30-65) 02/04/2016 PAP SMEAR 02/04/2016 INFLUENZA VACCINE (#1) 2025 HEPATITIS B VACCINES Completed 01/04/1998, 09/04/1997, 07/03/1997 HPV VACCINES Aged Out No longer eligi ble based on patient's age to complete this topic Care Teams Associate Dentist Relationship Specialty Start Date End Date Terri Hartman DO [address] [place] [address] PCP - General Family Practice 12/27/16
--- OUTSIDE RECORDS SUMMARY | 2025-03-03 14:21 | XMS_ITS | Encounter Summary ---
Author Organization [facility] Address [address] [facility] [address] Care Team Providers Care Biostatistics Manager Name Role Phone Terri Hartman DO Primary Care Provider [phone] Encounter Details Date Type Department Care Team (Latest Contact Info) Description 08/01/2004 Outpatient [facility] Family Medicine- [address] [place] [address] Laura Amaro MD NO ADDRESS ON FILE ROUTINE SAUSAGE WRAPPER EXAMINATION (Primary Dx); CONTRACEPTIVE MANGMT NOS; PROTEINURIA Social History Tobacco Use Types Packs/Day Years Used Date Smoking Tobacco: Never Assessed Comments Unknown Sex and Gender Information Value Date Recorded Sex Assigned at Not on file 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
--- OUTSIDE RECORDS SUMMARY | 2025-03-03 14:21 | XMS_ITS | Encounter Summary ---
Author Organization [facility] Address [address] [place] [address] Care Team Providers Care Lease Purchase Driver Name Role Phone Terri Hartman DO Primary Care Provider [phone]- [phone] Encounter Details Date Type Department Care Team (Latest Contact Info) Description 10/26/2003 Outpatient Historical [facility] Medicine- [address] [phone] Laura Amaro MD NO ADDRESS ON FILE URIN TRACT INFECTION NOS (Primary Dx); ABDOMINAL PAIN UNSPEC SITE Social History Tobacco Use Types Packs/Day Years Used Date Smoking Tobacco: Never Assessed Comments Unknown Sex and Gender Information Value Date Recorded Sex Assigned at Not on file 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
--- OUTSIDE RECORDS SUMMARY | 2025-03-03 14:22 | XMS_ITS | Encounter Summary ---
Author Organization [facility] Address [address] [facility] [place] [address] Care Team Providers Care Air Conditioning Installer Supervisor Name Role Phone Terri Hartman DO Primary Care Provider Encounter Details Date Type Department Care Team (Latest Contact Info) Description 05/04/2003 Outpatient Historical [facility] Family Medicine- [address] [place] [address] Laura Amaro MD NO ADDRESS ON FILE ACUTE PHARYNGITIS (Primary Dx) Social History Tobacco Use Types Packs/Day Years Used Date Smoking Tobacco: Never Assessed Comments Unknown Sex and Gender Information Value Date Recorded Sex Assigned at Not on file Legal Sex Female 5:48 AM AIRPORT GUIDE Gender Identity Not on file Sexual Orientation Not on file documented as of this encounter Plan of Treatment Not on file documented as of this encounter Visit Diagnoses Diagnosis Acute pharyngitis- Primary documented in this encounter Care Teams Air Conditioning Installer Supervisor Relationship Specialty Start Date End Date Terri Hartman DO [address] [facility] [place] [address] PCP - General Family Practice 12/27/16 documented as of this encounter
--- OUTSIDE RECORDS SUMMARY | 2025-03-03 14:22 | XMS_ITS | Clinical Summary ---
Author Organization [facility] Address [address] [facility] [address] [place] [address] Care Team Providers Care Renal Dialysis Technician Name Role Phone DevanTerri rubalcava Terrance ARVIZU Primary Care Provider Allergies No known active allergies Medications sertraline (ZOLOFT) 50 mg tabletIndications :Moderate episode of recurrent major depressive disorder (CMS/HCC) Take 1 Tablet (50 mg) by mouth daily. 30 Tablet 2 9 Active amLODIPine (NORVASC) 10 mg tabletIndications :Raynaud's disease without gangrene,Essentia l hypertension Take 1 Tablet (10 mg) by mouth daily. 30 Tablet 4 9 Active cloNIDine HCL (CATAPRES) 0.1 mg tabletIndications :Benign essential HTN Take 1 Tablet (0.1 mg) by mouth 3 times daily Take 1 tab if systolic blood pressure is above 160 or if diastolic is above 100.. 30 Tablet 2 9 Active raNITIdine (ZANTAC) 150 mg tabletIndications :Gastroesophageal [...] FOR ANXIETY. 30 Tablet 5 8 Active fluticasone propionate (FLONASE) 50 mcg/spray [place], Suspension nasal inhalerIndication s:Eustachian tube disorder, bilateral Administer 2 Sprays in each nostril daily. 16 Gram 3 7 Active linaCLOtide (LINZESS) 145 mcg capsuleIndication s:Chronic idiopathic constipation Take 1 Capsule (145 mcg) by mouth daily before breakfast. 90 Capsule 1 8 Active Active Problems Problem Noted Date Diagnosed Date Scleroderma 07/30/2018 Moderate episode of recurrent major depressive d isorder 12/27/2016 Raynaud's disease without gangrene 12/27/2016 Anxiety 12/27/2016 Gastroesophageal reflux disease 12/27/2016 Constipation 10/20/2010 Resolved Problems Problem Noted [...] = 0.6 oz pur e alcohol) Comments Unknown Sex and Gender Information Value Date Recorded Sex Assigned at Not on file Legal Sex Female 3:06 PM BILINGUAL PATIENT SUPPORT CASEWORKER Gender Identity Not on file Sexual Orientation Not on file Last Filed Vital Signs Vital Sign Reading Time Taken Comments Blood Pressure 142/101 07/30/2018 11:34 AM BILINGUAL PATIENT SUPPORT CASEWORKER Pulse 99 07/30/2018 11:34 AM BILINGUAL PATIENT SUPPORT CASEWORKER Temperature 37.1 C (98.8 F) 07/30/2018 11:34 AM BILINGUAL PATIENT SUPPORT CASEWORKER Respiratory Rate 20 01/24/2017 3:41 PM CDT Oxygen Saturation - - Inhaled Oxygen Concentration - - Weight 85.3 kg (187 lb 15.4 oz) 018 11:34 AM BILINGUAL PATIENT SUPPORT CASEWORKER Height 167.6 cm (5' 6 ) 07/30/2018 11:3 4 AM BILINGUAL PATIENT SUPPORT CASEWORKER Body Mass Index 30.34 07/30/2018 11:34 AM BILINGUAL PATIENT SUPPORT CASEWORKER Plan of Treatment Health Maintenance Due Date Last Done Comments DTAP/TDAP/TD VACCINES (1 - Tdap) 2005 HPV/Cotest (21-29) 2007 CERVICAL CANCER SCREENING 02/04/2016 HPV/Cotest (30-65) 02/04/2016 PAP SMEAR 02/04/2016 INFLUENZA VACCINE (#1) 2025 HEPATITIS B VACCINES Completed 01/04/1998, 09/04/1997, 07/03/1997 HPV VACCINES Aged Out No longer eligi ble based on patient's age to complete this topic Care Teams Renal Dialysis Technician Relationship Specialty Start Date End Date Terri Hartman DO [address] [place] [id number] PCP - General Family Practice 12/27/16
--- OUTSIDE RECORDS SUMMARY | 2025-03-03 14:22 | XMS_ITS | Encounter Summary ---
Author Organization [facility] Address [address] [facility] [place] [address] Care Team Providers Care Certified Nursing Assistant Instructor Name Role Phone Terri Hartman DO Primary Care Provider [phone] Encounter Details Date Type Department Care Team (Latest Contact Info) Description 06/12/2003 Outpatient Historical [facility] Family Medicine- [address] [place] [address] Laura Amaro MD NO ADDRESS ON FILE VAGINITIS NOS (Primary Dx) Social History Tobacco Use Types Packs/Day Years Used Date Smoking Tobacco: Never Assessed Comments Unknown Sex and Gender Information Value Date Recorded Sex Assigned at Not on file Legal Sex Female 5:48 AM JEWELRY ENGRAVER Gender Identity Not on file Sexual Orientation Not on file documented as of this encounter Plan of Treatment Not on file documented as of this encounter Visit Diagnoses Diagnosis Vaginitis and vulvovaginitis, unspecified- Primary documented in this encounter Care Teams Certified Nursing Assistant Instructor Relationship Specialty Start Date End Date Terri Hartman DO [address] [place] [facility] [place] [address] PCP - General Family Practice 12/27/16 documented as of this encounter
--- OUTSIDE RECORDS SUMMARY | 2025-03-03 14:22 | XMS_ITS | Encounter Summary ---
Author Organization [facility] Address [address] [place] [address] Care Team Providers Care Roulette Dealer Name Role Phone Terri Hartman DO Primary Care Provider [phone] Encounter Details Date Type Department Care Team (Latest Contact Info) Description 03/14/2007 Outpatient [facility] Family Medicine [address] [phone] Laura Amaro MD NO ADDRESS ON FILE Urinary Tract Infection, Site not Specified (Primary Dx); Unspecified Vaginitis and Vulvovaginitis Social History Tobacco Use Types Packs/Day Years Used Date Smoking Tobacco: Never Assessed Comments Unknown Sex and Gender Information Value Date Recorded Sex Assigned at Not on file Legal Sex Female 5:48 AM CLIENT DEVELOPMENT MANAGER Gender Identity Not on file Sexual Orientation Not on file documented as of this encounter Plan of Treatment Not on file documented as of this encounter Visit Diagnoses Diagnosis Urinary tract infection, site not specified- Primary Vaginitis and vulvovaginitis, unspecified documented in this encounter Care Teams Roulette Dealer Relationship Specialty Start Date End Date Terri Hartman DO [address] [place] [address] PCP - General Family Practice 12/27/16 documented as of this encounter
--- OUTSIDE RECORDS SUMMARY | 2025-03-03 14:22 | XMS_ITS | Encounter Summary ---
Author Organization [facility] Address [address] [place] [address] Care Team Providers Care Construction Teacher Name Role Phone Devan Terri L DO Primary Care Provider [phone] Reason for Referral * Outpatient Services (Routine) - Closed Specialty Diagnoses / Procedures Referred By Contac t Referred To Contact Radiology Diagnoses Nausea with vomiting Unspecified visual disturbance Head injury, unspecified Procedures CT HEAD WO CONTRAST Imani Romeo FNP [address] [place] [address] Phone: tel: fax: [facility] CT Scan [place] [address] [place] [address] Phone: tel: fax: Referral ID Status Reason Start Date Expiration Date V isits Requested Visits Authorized [id number] Closed [facility] CTS to Schedule (SGF) 05/01/2013 06/01/2014 1 1 Encounter Details Date Type Department Care Team ([facility] st Contact Info) Description 05/01/[address] [facility] Scheduling [address] [place] [address] Imani Romeo FNP [address] [place] [address] Nausea with vomiting (Primary Dx); Unspecified visual disturbance; Head injury, unspecified Social History Tobacco Use Types Packs/Day Years Used Date Smoking Tobacco: Never Alcohol Use Standard Drinks/Week Comments No 0 (1 standard drink = 0.6 oz pur e alcohol) Comments No Sex and Gender Information Value Date Recorded Sex Assigned at Not on file Legal Sex Female 5:48 AM CASKET TRIMMER Gender Identity Not on file Sexual Orientation Not on file Occupation Industry Job Start Date Job End Date Not on file Not on file Not on file Not on file documented as of this encounter Plan of Treatment Not on file documented as of this encounter Results * CT HEAD WO CONTRAST (05/02/2013 9:30 AM CDT) Anatomical Region Laterality Modality Head Computed Tomogra phy 05/02/2013 9:15 AM CDT Narrative 05/02/2013 10:07 AM CDT PROCEDURE HEAD CT noncontrast 02 May 2013 TECHNIQUE Noncontrast computed cerebral tomography was obtained with 48 axial images. Bone window reconstructions are also obtained. DESCRIPTION Noncontrast computed cerebral tomography shows no intracranial hemorrhage. There is no midline shift, mass effect, or edema. No extra-axial fluid collection is seen. There appears to be a small subcutaneous contusion in the left for head region on image 29 of series three. Bone window settings show intact calvarium. There is no abnormal fluid density seen in the visualized paranasal sinuses or mastoid air cells. IMPRESSION essentially negative noncontrast head CT Procedure Note Anish Elizondo MD - 05/02/[address] noncontrast 02 May 2013 TECHNIQUE Noncontrast computed cerebral tomography was obtained with 48 axial images. Bone window reconstructions are also obtained. DESCRIPTION Noncontrast computed cerebral tomography shows no intracranial hemorrhage. There is no midline shift, mass effect, or edema. No extra-axial fluid collection is seen. There appears to be a small subcutaneous contusion in the left for head region on image 29 of series three. Bone window settings show intact calvarium. There is no abnormal fluid density seen in the visualized paranasal sinuses or mastoid air cells. IMPRESSION essentially negative noncontrast head CT Imani Romeo PRINCIPAL BIOSTATISTICIAN CT ORDERABLES Fin al Result documented in this encounter Visit Diagnoses Diagnosis Nausea with vomiting- Primary Unspecified visual disturbance Head injury, unspecified Nausea with vomiting Unspecified visual disturbance Head injury, unspecified documented in this encounter Care Teams Construction Teacher Relationship Specialty Start Date End Date Terri Hartman DO [address] [place] [address] PCP - General Family Practice 12/27/16 documented as of this encounter
--- OUTSIDE RECORDS SUMMARY | 2025-03-03 14:22 | XMS_ITS | Encounter Summary ---
Author Organization [facility] Address [address] [place] [address] Care Team Providers Care Technical Publications Manager Name Role Phone Terri Hartman DO Primary Care Provider [phone] Encounter Details Date Type Department Care Team (Latest Contact Info) Description 05/11/2003 Outpatient [facility] Family Medicine [place] [address] [place] [phone] Yovanny Sandoval DO NO ADDRESS ON FILE GENITAL WARTS NOS (Primary Dx) Social History Tobacco Use Types Packs/Day Years Used Date Smoking Tobacco: Never Assessed Comments Unknown Sex and Gender Information Value Date Recorded Sex Assigned at Not on file Legal Sex Female 5:48 AM GROUP PRODUCT MANAGER Gender Identity Not on file Sexual Orientation Not on file documented as of this encounter Plan of Treatment Not on file documented as of this encounter Visit Diagnoses Diagnosis Other specified viral warts- Primary documented in this encounter Care Teams Technical Publications Manager Relationship Specialty Start Date End Date Terri Hartman DO [address] [place] [address] PCP - General Family Practice 12/27/16 documented as of this encounter
--- OUTSIDE RECORDS SUMMARY | 2025-03-03 14:22 | XMS_ITS | Encounter Summary ---
Author Organization [facility] Address [address] [facility] [place] [address] Care Team Providers Care Conference Organizer Name Role Phone Terri Hartman DO Primary Care Provider [phone] Encounter Details Date Type Department Care Team (Latest Contact Info) Description 05/29/2005 Outpatient Historical [facility] Family Medicine- [address] [place] [address] Laura Amaro MD NO ADDRESS ON FILE ADJUSTMENT DISORDER WITH ANXIETY (Primary Dx); DEPRESSIVE DISORDER NEC Social History Tobacco Use Types Packs/Day Years Used Date Smoking Tobacco: Never Assessed Comments Unknown Sex and Gender Information Value Date Recorded Sex Assigned at Not on file Legal Sex Female 5:48 AM AVIATION ELECTRICIAN Gender Identity Not on file Sexual Orientation Not on file documented as of this encounter Plan of Treatment Not on file documented as of this encounter Visit Diagnoses Diagnosis Adjustment disorder with anxiety- Primary Depressive disorder, not elsewhere classified documented in this encounter Care Teams Conference Organizer Relationship Specialty Start Date End Date Terri Hartman DO [address] [place] [facility] [place] [address] PCP - General Family Practice 12/27/16 documented as of this encounter
--- OUTSIDE RECORDS SUMMARY | 2025-03-03 14:22 | XMS_ITS | Encounter Summary ---
Author Organization [facility] Address [address] [facility] [place] [address] Care Team Providers Care Heat Treater Name Role Phone Terri Hartman DO Primary Care Provider Encounter Details Date Type Department Care Team (Latest Contact Info) Description 05/04/2003 Outpatient Historical [facility] Family Medicine- [address] [place] [address] Laura Amaro MD NO ADDRESS ON FILE ACUTE PHARYNGITIS (Primary Dx); ACUTE URI NOS Social History Tobacco Use Types Packs/Day Years Used Date Smoking Tobacco: Never Assessed Comments Unknown Sex and Gender Information Value Date Recorded Sex Assigned at Not on file Legal Sex Female 5:48 AM DIRECTOR INTELLIGENCE ANALYSIS PROGRAMS Gender Identity Not on file Sexual Orientation Not on file documented as of this encounter Plan of Treatment Not on file documented as of this encounter Visit Diagnoses Diagnosis Acute pharyngitis- Primary Acute upper respiratory infections of unspecified site documented in this encounter Care Teams Heat Treater Relationship Specialty Start Date End Date Terri Hartman DO [address] [place] [facility] [place] [address] PCP - General Family Practice 12/27/16 documented as of this encounter
--- OUTSIDE RECORDS SUMMARY | 2025-03-03 14:22 | XMS_ITS | Encounter Summary ---
Author Organization [facility] Address [address] [facility] [place] [address] Care Team Providers Care Drywall Worker Name Role Phone Terri Hartman DO Primary Care Provider [phone]- [phone] Encounter Details Date Type Department Care Team (Latest Contact Info) Description 05/07/2007 Outpatient Historical [facility] [place] Family Medicine- [address] [place] [address] Raz Jean, [place] NO ADDRESS ON FILE Absence of Menstruation (Primary Dx); State, Incidental Social History Tobacco Use Types Packs/Day Years Used Date Smoking Tobacco: Never Assessed Comments Unknown Sex and Gender Information Value Date Recorded Sex Assigned at Not on file Legal Sex Female 5:48 AM GLASS DECORATOR Gender Identity Not on file Sexual Orientation Not on file documented as of this encounter Plan of Treatment Not on file documented as of this encounter Visit Diagnoses Diagnosis Absence of menstruation- Primary state, incidental documented in this encounter Care Teams Drywall Worker Relationship Specialty Start Date End Date Terri Hartman DO [address] [facility] [place] [address] PCP - General Family Practice 12/27/16 documented as of this encounter
--- OUTSIDE RECORDS SUMMARY | 2025-03-03 14:22 | XMS_ITS | Encounter Summary ---
Author Organization [facility] Address [address] [facility] [address] Care Team Providers Care Sap Consultant Name Role Phone Terri Hartman DO Primary Care Provider [phone]- [phone] Encounter Details Date Type Department Care Team (Latest Contact Info) Description 09/04/2003 Outpatient Historical [facility] Family Medicine- [address] [place] [address] Laura Amaro MD NO ADDRESS ON FILE VAGINITIS NOS (Primary Dx); SCABIES Social History Tobacco Use Types Packs/Day Years Used Date Smoking Tobacco: Never Assessed Comments Unknown Sex and Gender Information Value Date Recorded Sex Assigned at Not on file Legal Sex Female 5:48 AM CASH CONTROLLER Gender Identity Not on file Sexual Orientation Not on file documented as of this encounter Plan of Treatment Not on file documented as of this encounter Visit Diagnoses Diagnosis Vaginitis and vulvovaginitis, unspecified- Primary Scabies documented in this encounter Care Teams Sap Consultant Relationship Specialty Start Date End Date Terri Hartman DO [address] [place] [facility] [place] [address] PCP - General Family Practice 12/27/16 documented as of this encounter
--- OUTSIDE RECORDS SUMMARY | 2025-03-03 14:22 | XMS_ITS | Encounter Summary ---
Author Organization [facility] Address [address] [facility] [place] [address] Care Team Providers Care Tour Consultant Name Role Phone Terri Hartman DO Primary Care Provider Encounter Details Date Type Department Care Team (Latest Contact Info) Description 06/12/2003 Outpatient [facility] Family Medicine- [employer] [address] [place] [address] Laura Amaro MD NO ADDRESS ON FILE VAGINITIS NOS (Primary Dx); Gynecologic examination; SCREENING-PULMONARY TB Social History Tobacco Use Types Packs/Day Years Used Date Smoking Tobacco: Never Assessed Comments Unknown Sex and Gender Information Value Date Recorded Sex Assigned at Not on file Legal Sex Female 5:48 AM COMMUNITY MUSIC THERAPIST Gender Identity Not on file Sexual Orientation Not on file documented as of this encounter Plan of Treatment Not on file documented as of this encounter Visit Diagnoses Diagnosis Vaginitis and vulvovaginitis, unspecified- Primary Gynecologic examination Gynecological examination Screening examination for pulmonary tuberculosis documented in this encounter Care Teams Tour Consultant Relationship Specialty Start Date End Date Terri Hartman DO [address] [place] [facility] [place] [address] PCP - General Family Practice 12/27/16 documented as of this encounter
--- NOTE | 2025-03-05 13:03 | W.ED.HA ---
HPI - Headache General: Chief Complaint: Headache Stated Complaint: HTN, N/V Time Seen by Provider: 03/03/25 14:03 History of Present Illness: LWOT Related Data Previous Rx's ?Medication ?Instructions ?Recorded ibuprofen 800 mg tablet See Rx Instructions .Route 10/20/24 .COMPLEX #90 tabs cetirizine 10 mg tablet See Rx Instructions .Route 02/09/25 .COMPLEX #30 tabs omeprazole 40 mg capsule,delayed See Rx Instructions .Route 02/09/25 release .COMPLEX #90 caps ondansetron 4 mg disintegrating See Rx Instructions .Route 02/09/25 tablet .COMPLEX #30 tabs alprazolam 0.5 mg tablet 0.5 mg PO DAILY PRN anxiety 30 03/03/25 days #30 tabs clonidine HCl 0.1 mg tablet 0.1 mg PO BID PRN hypertensive 03/03/25 emergency 30 days #30 tabs amlodipine 10 mg tablet See Rx Instructions .Route 03/05/25 .COMPLEX #90 tabs citalopram 40 mg tablet See Rx Instructions .Route 03/05/25 .COMPLEX #90 tabs oxybutynin chloride 10 mg 10 mg PO DAILY 30 days #30 tabs 03/05/25 tablet,extended release 24 hr telmisartan 20 mg tablet See Rx Instructions .Route 03/05/25 .COMPLEX 90 days #90 tabs tirzepatide (weight loss) 5 mg/0.5 See Rx Instructions .Route 03/05/25 mL subcutaneous pen injector .COMPLEX #2 mL (Zepbound) Allergies Allergy/AdvReac Type Severity Reaction Status Date / Time ciprofloxacin Allergy Unknown Unknown Verified 03/03/25 13:08 [facility] ED [facility]: Medical History (Updated 11/09/24 @ 08:49 by LAURA Roman) Obesity Acute bacterial sinusitis Food allergy Dermatitis Elevated liver enzymes Urinary incontinence in female Chronic nocturnal hyperhidrosis Hyperhidrosis Urinary incontinence Sweating abnormality Tachycardia Insomnia Itching Rash Conjunctivitis Pheochromocytoma Anemia Upper respiratory infection Sprain of right index finger Sprain of left ring finger Sprain of finger of right hand Abdominal pain Sprain of right hand Pleurisy Otitis media of both ears Chest pain Painful respiration Lower respiratory infection Exposure to COVID-19 virus Anxiety Sinus arrhythmia Chronic diarrhea Medication management Mood swings Pharyngitis Rhus dermatitis Vitamin D deficiency Scleroderma Raynauds disease Pleuritic chest pain Left ankle sprain Intermittent palpitations GERD (gastroesophageal reflux disease) Essential hypertension Depression Atrial arrhythmia Anxiety Patient has taken Alprazolam 0.5mg daily in the past that was provided by previous provider. 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
== END 2025-03-03 14:09 | disposition left against medical advice (07) ==
PROVIDERS: Emergency Provider Registered Nurse; PCP Nurse Practitioner Family
DX: Z53.21 Procedure and treatment not carried out due to patient leaving prior to being seen by health care provider (principal); I10 Essential (primary) hypertension

== ENCOUNTER → 2025-03-05 13:29 | Outpatient (BNVA) | payer MEDICAID, SELFPAY | PROVIDERS: PCP Nurse Practitioner Family; Visit Provider Nurse Practitioner Family | DX: Z91.018 Allergy to other foods (principal); F41.9 Anxiety disorder, unspecified; I10 Essential (primary) hypertension; E55.9 Vitamin D deficiency, unspecified; E66.812 Obesity, class 2; E66.09 Other obesity due to excess calories; Z68.36 Body mass index [BMI] 36.0-36.9, adult; D64.9 Anemia, unspecified; Z79.899 Other long term (current) drug therapy; L30.9 Dermatitis, unspecified | CPT/HCPCS: 80053; 80061; 81003; 82306; 82570; 82785; 83036; 84156; 84443; 85025; 86001; 86003; 86008; 87077; 87086; 87184 ==

== ENCOUNTER → 2025-03-09 16:20 | Outpatient (BNVA) | payer MEDICAID, SELFPAY | PROVIDERS: PCP Nurse Practitioner Family; Visit Provider Nurse Practitioner Family | DX: R74.8 Abnormal levels of other serum enzymes (principal) | CPT/HCPCS: 80053; 80074 ==

== ENCOUNTER 2025-03-20 08:38 | Outpatient (CLI) | payer MEDICAID, SELFPAY ==
--- NOTE | 2025-03-20 09:00 | US_ITS ---
WS: [id number] RIGHT UPPER QUADRANT ULTRASOUND HISTORY: R74.8 - Abnormal levels of other serum enzymes COMPARISON: None available. Liver: 16.8 cm in length. Normal size with mild hepatic steatosis. Portal Vein: Normal hepatopetal flow with monophasic waveform. Gallbladder: Normally distended gallbladder with no stones or wall thickening. CBD: 0.2 cm Pancreas: Obscured by bowel gas. Right kidney: 11.8 cm in length. Normal size and echogenicity. No hydronephrosis or mass. Aorta and IVC: Unremarkable abdominal aorta and IVC. No ascites. US/US liver [id number] IMPRESSION: 1. Normal gallbladder. 2. Mild hepatic steatosis.
== END 2025-03-20 08:39 | disposition home or self-care (01) ==
PROVIDERS: PCP Nurse Practitioner Family; Visit Provider Nurse Practitioner Family
DX: R74.8 Abnormal levels of other serum enzymes (principal); K76.0 Fatty (change of) liver, not elsewhere classified
CPT/HCPCS: 76705

== ENCOUNTER → 2025-04-27 16:45 | Outpatient (BNVA) | payer MEDICAID, SELFPAY | PROVIDERS: PCP Nurse Practitioner Family; Visit Provider Nurse Practitioner Family | DX: J06.9 Acute upper respiratory infection, unspecified (principal) | CPT/HCPCS: 87426 ==